=== PATIENT | male | born 1970 | race Caucasian/White ===

== ENCOUNTER 2017-03-18 09:06 | Emergency (ER) | payer OTHER ==
[~2017-03-18] VITALS: Ht 180.3 cm; Wt 68.2 kg
[2017-03-18] MEDS ORDERED: CITA10TA68 PO (09:15)
[2017-03-18] MEDS ORDERED: OMEP20 PO (09:15)
[2017-03-18] MEDS ORDERED: MONT10TA21 PO (09:15)
[2017-03-18] MEDS ORDERED: KETOROLAC TROMETHAMINE 60 MG/2 ML VIAL IM ONE (10:45)
[2017-03-18 11:40] VITALS: BP 136/82
[2017-03-18] MEDS ORDERED: BACLOFEN 10 MG TABLET PO ONE (12:00)
== END 2017-03-18 12:48 | disposition home or self-care (01) ==
LOC: EMS 09:09
DX: S13.4XXA Sprain of ligaments of cervical spine, initial encounter (principal); M62.838 Other muscle spasm; K21.9 Gastro-esophageal reflux disease without esophagitis; V48.5XXA Car driver injured in noncollision transport accident in traffic accident, initial encounter; Y93.89 Activity, other specified; Y92.89 Other specified places as the place of occurrence of the external cause; Y99.8 Other external cause status
CPT/HCPCS: 96372; 99283; J1885